=== PATIENT | female | born 1955 | race Caucasian/White ===

== ENCOUNTER → 2018-05-10 | Outpatient (CLI) | payer OTHER ==
[~2018-05-10] MED LIST: IOHEXOL 350 MG/ML 100ML IJ ONE; METOPROLOL TARTRATE 1MG/1ML-5ML VIAL IV ONE; NITROGLYCERIN 0.4 MG SL TAB SL ONE
== END | disposition home or self-care (01) ==
LOC: CT 08:22
PROVIDERS: ATTEND Internal Medicine Cardiovascular Disease
DX: I25.10 Atherosclerotic heart disease of native coronary artery without angina pectoris (principal); I50.32 Chronic diastolic (congestive) heart failure
CPT/HCPCS: 75571; 75574; Q9967

== ENCOUNTER → 2024-06-28 | Outpatient (CLI) | payer BC, OTHER ==
--- NOTE | 2024-06-29 17:01 | DVH ---
EXAM: NM NM LIMITED INFLAM WBC INDIUM DATE OF SERVICE: 06/29/2024 01:05 PM ORDERING PHYSICIAN: TACOS JOHNSON REASON FOR EXAM: CHRONIC OSTEOMYELITIS-LUMBAR TECHNIQUE: 0.581 uCi of indium 111 labeled wBCs and imaging 24 hours later of the whole body were ob tained. COMPARISON: None FINDINGS: Normal uptake in the liver and spleen is noted. IMPRESSION: 1. No areas of abnormal uptake. End of Report
== END | disposition home or self-care (01) ==
LOC: XYW 08:33
PROVIDERS: ATTEND Orthopaedic Surgery Adult Reconstructive Orthopaedic Surgery
DX: M46.26 Osteomyelitis of vertebra, lumbar region (principal); M86.68 Other chronic osteomyelitis, other site; R93.89 Abnormal findings on diagnostic imaging of other specified body structures
CPT/HCPCS: 78831; A9547